=== PATIENT | male | born 1950 | race Caucasian/White ===

== ENCOUNTER 2020-07-19 09:14 | Emergency (ER) | payer MEDICARE, SELFPAY ==
[2020-07-19 09:40] VITALS: BP 140/87; PULSE 73; RESP 16; TEMP 36.7; O2SAT 96; BMI 26.4
--- NOTE | 2020-07-19 09:45 | XR_ITS ---
WS: [id number] Right wrist, 3 views, 07/19/2020 Clinical Data: INJURY Comparison: None. Findings: No fractures or dislocations are seen. The carpal bones are intact. There is no soft tissue swelling. The distal radius and ulna are not remarkable. There is severe osteoarthritic change at the base of the right first metacarpal with osteophytes and sclerosis. XR/XR wrist RT min 3V* 33021 Impression: Negative for right wrist fracture.
--- NOTE | 2020-07-19 09:45 | XR_ITS ---
WS: [id number] Right hand, 3 views, 07/19/2020 Clinical Data: INJURY Comparison: None. Findings: No fractures or dislocations are seen. The soft tissues are unremarkable. There is osteoa rthritic change at the base of the right first metacarpal, heads of the second and third metacarpals and PIP joint of the right fourth finger. There is soft tissue swelling over the dorsum of the hand. XR/XR hand RT min 3V* [id number] Impression: 1. Negative for right hand fracture. 2. Multiple joints with osteoarthritis.
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
== END 2020-07-19 11:16 | disposition home or self-care (01) ==
PROVIDERS: Emergency Provider Nurse Practitioner Family
DX: S63.501A Unspecified sprain of right wrist, initial encounter (principal); S66.911A Strain of unspecified muscle, fascia and tendon at wrist and hand level, right hand, initial encounter; X50.9XXA Other and unspecified overexertion or strenuous movements or postures, initial encounter
CPT/HCPCS: 29125; 73110; 73130; 99283